=== PATIENT | female | born 1995 | race Caucasian/White ===

== ENCOUNTER 2017-12-11 17:56 | Emergency (ER) | payer OTHER ==
[~2017-12-11] VITALS: Ht 165.1 cm; Wt 122.5 kg
[~2017-12-11 17:56] MED LIST: [UNRECOGNIZED DRUG - CODE] PO
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
[2017-12-11 18:07] VITALS: BP 148/80
[2017-12-11] MEDS ORDERED: KETOROLAC 60 MG/2 ML VIAL IM ONE (18:10)
--- NOTE | 2017-12-11 18:56 | NUR ---
PT. IN BED RESTING WITH BROTHER AT BEDSIDE, RR EVEN AND UNLABORED. WILL CONTINUE TO MONITOR.
--- NOTE | 2017-12-11 19:00 | NUR ---
Pt report given to [facility]. Transfer of care at this time.
[2017-12-11 20:42] VITALS: BP 144/82
--- NOTE | 2017-12-11 20:42 | NUR ---
Patient discharged with v/s stable. Written and verbal after care instructions given and explained. Patient alert, oriented and verbalized understanding of instructions. Ambulatory with steady gait. All questions addressed prior to discharge. ID band removed. Patient advised to follow up with PMD. Rx of NAPROSYN 500MG given. Patient educated on indication of medication including possible reaction and side effects. Opportunity to ask questions provided and answered.
== END 2017-12-11 20:42 | disposition home or self-care (01) ==
LOC: MED 17:56
DX: S62.512A Displaced fracture of proximal phalanx of left thumb, initial encounter for closed fracture (principal); V43.62XA Car passenger injured in collision with other type car in traffic accident, initial encounter; Y93.89 Activity, other specified; Y92.488 Other paved roadways as the place of occurrence of the external cause; Y99.8 Other external cause status; Z91.040 Latex allergy status; Z79.899 Other long term (current) drug therapy
CPT/HCPCS: 29125; 73140; 96372; 99284; J1885

== ENCOUNTER 2022-02-23 09:28 | Emergency (ER) | payer OTHER ==
[~2022-02-23] VITALS: Ht 165.1 cm; Wt 123.4 kg
[2022-02-23 09:35] VITALS: BP 179/65
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
[2022-02-23] MEDS ORDERED: cephALEXin 500 MG CAP PO ONE (11:50)
[2022-02-23] MEDS ORDERED: KETOROLAC 30 MG/ML VIAL IM ONE (11:50)
[2022-02-23] MEDS ORDERED: SULFAMETH/TRIMETH DS 800/160MG 1 TAB PO ONE (11:50)
[2022-02-23] MEDS ORDERED: SULF-59 PO (13:00)
[2022-02-23] MEDS ORDERED: CEPH-588 PO (13:00)
[2022-02-23] MEDS ORDERED: IBUP-2213 PO (13:00)
[2022-02-23 13:05] VITALS: BP 148/89
--- NOTE | 2022-02-23 13:05 | NUR ---
Patient discharged with v/s stable. Written and verbal after care instructions given and explained. Patient alert, oriented and verbalized understanding of instructions. Ambulatory with steady gait. All questions addressed prior to discharge. ID band removed. Patient advised to follow up with PMD. Rx of KEFLEX, BACTRIM DS given. Patient educated on indication of medication including possible reaction and side effects. Opportunity to ask questions provided and answered.
== END 2022-02-23 13:05 | disposition home or self-care (01) ==
LOC: MED 09:28
DX: U07.1 COVID-19 (principal); L03.116 Cellulitis of left lower limb; E03.9 Hypothyroidism, unspecified; E78.5 Hyperlipidemia, unspecified
CPT/HCPCS: 81025; 87426; 96372; 99284; J1885

== ENCOUNTER 2022-03-13 17:00 | Emergency (ER) | payer OTHER ==
[~2022-03-13] VITALS: Ht 165.1 cm; Wt 117.9 kg
[~2022-03-13 17:00] MED LIST changes: +CEPH-588 PO; +IBUP-2213 PO; +SULF-59 PO
[2022-03-13 17:02] VITALS: BP 99/45
--- NOTE | 2022-03-13 17:09 | NUR ---
PT W/C ASSISTED TO BED 7.
--- NOTE | 2022-03-13 17:21 | NUR ---
PA AT BEDSIDE
[2022-03-13] MEDS ORDERED: HYDROcodone/APAP 7.5/325 MG 1 TAB PO ONE (17:25)
[2022-03-13] MEDS ORDERED: KETOROLAC 30 MG/ML VIAL IM ONE (17:25)
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
--- NOTE | 2022-03-13 17:53 | NUR ---
RAD AT BEDSIDE
[2022-03-13] MEDS ORDERED: BACI1PAC6 TP (18:32)
[2022-03-13] MEDS ORDERED: IBUP-2213 PO (18:32)
[2022-03-13] MEDS ORDERED: BACITRACIN OINT 500 UNITS/GM PKT TP ONE (18:49)
[2022-03-13 18:50] VITALS: BP 112/69
--- NOTE | 2022-03-13 18:50 | NUR ---
Patient discharged with v/s stable. Written and verbal after care instructions given and explained. Patient alert, oriented and verbalized understanding of instructions. Ambulatory with steady gait. All questions addressed prior to discharge. ID band removed. Patient advised to follow up with PMD. Rx of BACITRACIN OINT IBUPROFEN given. Opportunity to ask questions provided and answered.
--- NOTE | 2022-03-13 18:51 | NUR ---
The patient's care was reviewed and supervised by Claudette Velazquez RN.
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
== END 2022-03-13 18:50 | disposition home or self-care (01) ==
LOC: MED 17:00
DX: S93.401A Sprain of unspecified ligament of right ankle, initial encounter (principal); S93.601A Unspecified sprain of right foot, initial encounter; S80.01XA Contusion of right knee, initial encounter; Z91.040 Latex allergy status; W18.30XA Fall on same level, unspecified, initial encounter; Y93.89 Activity, other specified; Y92.89 Other specified places as the place of occurrence of the external cause; Y99.8 Other external cause status
CPT/HCPCS: 29515; 73562; 73590; 73610; 73630; 90471; 90715; 96372; 99284; J1885; Q0092

== ENCOUNTER 2023-05-22 22:55 | Emergency (ER) | payer OTHER ==
[~2023-05-22] VITALS: Ht 165.1 cm; Wt 136.1 kg
[~2023-05-22 22:55] MED LIST changes: +BACI-418 TP
[2023-05-22 23:01] VITALS: BP 184/110; PULSE 80; RESP 16; TEMP 96.9; O2SAT 99
[2023-05-22 23:31] LABS: APPEARANCE,URINE CLOUDY (CLEAR); BILIRUBIN,URINE 1+ (NEGATIVE); BLOOD, URINE NEGATIVE (NEGATIVE); COLOR,URINE YELLOW (YELLOW); LEUKOCYTE ESTERASE ,URINE NEGATIVE (NEGATIVE); NITRITE, URINE NEGATIVE (NEGATIVE); PROTEIN,URINE NEGATIVE (NEGATIVE); UGLUCOSE NEGATIVE (NEGATIVE); UROBILINOGEN,URINE 0.2 EU/dL (0.2 - 1)
[2023-05-22 23:33] LABS: ICTOTEST POSITIVE (NEGATIVE)
[2023-05-23] MEDS ORDERED: FAMOTIDINE 20 MG TAB PO ONE (01:50)
[2023-05-23] MEDS ORDERED: ALUMINUM HYD/MAG/SIMETHICONE 30 ML UDC PO ONE (01:50)
[2023-05-23 02:29] LABS: BASOPHILS # (AUTO) 0.1 K/uL (0.00-0.22); BASOPHILS % (AUTO) 0.5 % (0.0-2.0); EOSINOPHILS # (AUTO) 0.6 K/uL (0-0.4); EOSINOPHILS % (AUTO) 3.2 % (0.0-4.0); HEMATOCRIT 40.3 % (36-48); HEMOGLOBIN 13.4 g/dL (12.0-16.0); LYMPHOCYTES # (AUTO) 3.9 K/uL (2.5-16.5); LYMPHOCYTES % (AUTO) 21.6 % (20.5-51.1); MEAN CORPUSCULAR HEMOGLOBIN 28 pg (27-31); MEAN CORPUSCULAR HGB CONC 33 g/dL (33-37); MEAN CORPUSCULAR VOLUME 84.9 fL (80-94); MONOCYTES # (AUTO) 0.9 K/uL (0.8-1.0); MONOCYTES % (AUTO) 4.9 % (1.7-9.3); NEUTROPHILS # (AUTO) 12.7 K/uL (1.8-7.7); NEUTROPHILS % (AUTO) 69.8 % (42.2-75.2); PLATELET COUNT (AUTO) 306 K/uL (140-450); RED BLOOD CELL COUNT(AUTO) 4.75 MIL/uL (4.20-5.40); RED CELL DISTRIBUTION WIDTH 13.4 % (11.6-13.7); WHITE BLOOD COUNT (AUTO) 18.2 K/uL (4.8-10.8)
[2023-05-23 02:50] LABS: ALBUMIN 3.5 g/dL (3.4-5.0); ANION GAP 12.7 (8-16); CALCIUM 9.1 mg/dL (8.5-10.1); POTASSIUM 3.7 mmol/L (3.5-5.1); TOTAL BILIRUBIN 0.4 mg/dL (0.0-1.0); TOTAL PROTEIN, SERUM 7.8 g/dL (6.4-8.2)
[2023-05-23] MEDS ORDERED: ACETAMINOPHEN EXTRA STRENGTH 500 MG TAB PO ONE (03:40)
[2023-05-23] MEDS ORDERED: IBUPROFEN 600 MG TAB PO ONE (03:40)
[2023-05-23 04:13] VITALS: O2SAT 99
[2023-05-23] MEDS ORDERED: OMEP20EC11 PO (05:30)
[2023-05-23 05:36] VITALS: BP 110/42; PULSE 68; RESP 13; O2SAT 100
== END 2023-05-23 05:36 | disposition home or self-care (01) ==
LOC: MED 22:55
DX: R10.13 Epigastric pain (principal); K92.1 Melena; D72.829 Elevated white blood cell count, unspecified
CPT/HCPCS: 36415; 76705; 80053; 81003; 81025; 83690; 85025; 99284

== ENCOUNTER 2024-05-09 04:50 | Emergency (ER) | payer OTHER ==
[~2024-05-09] VITALS: Ht 165.1 cm; Wt 127.0 kg
[~2024-05-09 04:50] MED LIST changes: +OMEP20EC11 PO
[2024-05-09 05:02] VITALS: BP 147/81; PULSE 72; RESP 16; TEMP 98.2; O2SAT 100
[2024-05-09] MEDS ORDERED: AMOX1TAB8 PO (05:22)
== END 2024-05-09 05:30 | disposition home or self-care (01) ==
LOC: MED 04:50
DX: H65.191 Other acute nonsuppurative otitis media, right ear (principal); E03.9 Hypothyroidism, unspecified; Z79.899 Other long term (current) drug therapy; Z91.040 Latex allergy status
CPT/HCPCS: 99283